=== PATIENT | female | born 1980 ===

== ENCOUNTER 2018-03-26 12:34 | Emergency (ER) | payer OTHER ==
[2018-03-26 13:32] VITALS: BP 109/60
--- NOTE | 2018-03-26 14:29 | UC ---
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 Ever since she has had sharp right flank pain which traverses down right side of her body. Denies numbness, weakness. She can bear weight and ambulate and prefers to stand up. Has taken naproxen with momentary relief but pain is recurrent. - History of Current Complaint Chief Complaint: UCBackPain Stated Complaint: RT SIDE OF BODY PAIN Time Seen by Provider: 03/26/18 14:19 Hx Obtained From: Patient Hx Last Menstrual Period: 03/17/18 ?: No Onset/Duration: Sudden Onset, Lasting Days Timing: Constant Severity Initially: Moderate Severity Currently: Severe Pain Intensity: 8 Location: Diffuse, Other - along right side of body radiating from lumbar area Radiates: Yes Radiates to: Back, Flank Character: Aching, Sharp Aggravating Factor(s): Movement, Other: Alleviating Factor(s): Position, OTC Analgesics Associated Signs and Symptoms: Positive: Back Pain - Risk Factors Ectopic Risk Factor: Negative Ovarian Torsion Risk Factor: Reproductive Age Allergies/Adverse Reactions: Allergies Allergy/AdvReac Type Severity Reaction Status Date / Time No Known Allergies Allergy Verified 03/26/18 13:32 PMH/Surg Hx/FS Hx/Imm Hx Previously Healthy: Yes - Surgical History Surgical History: None Surgery Procedure, Year, and Place: denies - Family History Known Family History: Positive: None - Social History Alcohol Use: Rare Substance Use Type: None Smoking Status (MU): Never Smoked Tobacco Review of Systems Musculoskeletal: Arthralgia, Myalgia All Other Systems Reviewed And Are Negative: Yes Physical Exam Triage Information Reviewed: Yes Appearance: Well-Appearing, Well-Nourished, Pain Distress Vital Signs: Initial Vital Signs Temp 99 F 03/26/18 13:29 Pulse 63 03/26/18 13:29 Resp 16 03/26/18 13:29 BP 109/60 03/26/18 13:29 Pulse Ox 100 03/26/18 13:29 Vital Signs Reviewed: Yes Eyes: Positive: Conjunctiva Clear ENT: Positive: Hearing grossly normal, Pharyngeal erythema Neck: Positive: Supple, Nontender, No Lymphadenopathy Respiratory: Positive: Chest non-tender, Lungs clear, Normal breath sounds, No respiratory distress Cardiovascular: Positive: RRR, No Murmur, Pulses Normal, Brisk Capillary Refill Abdomen Description: Positive: Nontender, No Organomegaly, Soft, Bruit Bowel Sounds: Positive: Present Musculoskeletal: Positive: Strength Intact, ROM Intact, No Edema, Other: - SLR negative Neurological: Positive: Alert, Muscle Tone Normal Psychological: Positive: Normal Response To Family Skin Exam: Normal Abd Pain Female Course/Dx - Course Course Of Treatment: start medications as prescribed, referral PT and chiropractor as per patient's request, referred to PCP - Differential Dx/Diagnosis Provider Diagnoses: lumbar muscle strain Discharge - Sign-Out/Discharge Documenting (check all that apply): Patient Departure, Post-Discharge Follow Up - Discharge Plan Condition: Stable Disposition: HOME Prescriptions: Ibuprofen TAB* [Motrin TAB* 600 MG] 600 mg PO Q6H PRN #30 tab PRN Reason: Pain tiZANidine TAB* [Zanaflex TAB*] 2 mg PO TID PRN #30 tab PRN Reason: Pain Patient Education Materials: Ibuprofen (By mouth), Tizanidine (By mouth), Muscle Strain (ED), Musculoskeletal Pain (ED) Referrals: [facility] [Outside] Anju Padron [place] [Doctor of Chiropractic] - No Primary Care Phys,NOPCP [Primary Care Provider] - - Billing Disposition and Condition Condition: STABLE Disposition: Home
== END 2018-03-26 14:45 | disposition home or self-care (01) ==
LOC: UCEAST 12:34
DX: S39.012A Strain of muscle, fascia and tendon of lower back, initial encounter (principal); X50.0XXA Overexertion from strenuous movement or load, initial encounter; Y93.89 Activity, other specified; Y92.79 Other farm location as the place of occurrence of the external cause; Y99.0 Civilian activity done for income or pay
CPT/HCPCS: 99201; G0463